=== PATIENT | male | born 1980 | race Caucasian/White ===

== ENCOUNTER 2022-12-03 22:43 | Emergency (ER) | payer MEDICARE, MEDICAID ==
[~2022-12-03] VITALS: Ht 182.9 cm; Wt 168.9 kg
[2022-12-03] MEDS ORDERED: BOOSTRIX VACCINE (TETANUS/DIPHTH/ACEL. PERTUSSIS) 0.5ML SYR IM ONE (23:35)
[2022-12-03] MEDS ORDERED: DOXYCYCLINE HYCLATE 100MG TABLET PO ONE (23:55)
[2022-12-03] MEDS ORDERED: DOXY-443 PO (23:55)
[2022-12-04 00:04] VITALS: BP 130/84; TEMP 98.8; O2SAT 98
== END 2022-12-04 00:06 | disposition home or self-care (01) ==
LOC: M ED 22:43
DX: L02.415 Cutaneous abscess of right lower limb (principal); L03.115 Cellulitis of right lower limb

== ENCOUNTER 2022-12-05 20:02 | Emergency (ER) | payer MEDICARE, MEDICAID ==
[~2022-12-05] VITALS: Ht 182.9 cm; Wt 166.2 kg
[~2022-12-05 20:02] MED LIST: DOXY-443 PO
[2022-12-05 20:42] VITALS: BP 135/88; TEMP 99.7; O2SAT 97
== END 2022-12-05 20:44 | disposition home or self-care (01) ==
LOC: M ED 20:02
DX: L03.115 Cellulitis of right lower limb (principal)

== ENCOUNTER → 2024-08-21 | Outpatient (REF) | payer MEDICARE, MEDICAID ==
[~2024-08-21] MED LIST changes: +DOXY-441 PO; -DOXY-443 PO
[2024-08-21 18:34] LABS: BASO # 0.0 10^3/uL (0.0-0.2); BASO % 0.5 % (0.0-1.0); EOS # 0.2 10^3/uL (0.0-0.5); EOS % 2.0 % (0.0-3.0); LYMPH # 2.1 10^3/uL (1.5-5.0); LYMPH % 27.0 % (24.0-44.0); MONO # 0.8 10^3/uL (0.0-0.8); MONO % 10.5 % (2.0-8.0); NEUTROPHILS # 4.6 10^3/uL (1.5-8.5); NEUTROPHILS % 59.7 % (36.0-66.0); PLATELET COUNT, AUTOMATED 243 10^3/uL (150-450)
[2024-08-21 18:39] LABS: ALT/SGPT 16 U/L (7.0-40); AST/SGOT 12 U/L (<34); CALCIUM LEVEL 9.0 MG/DL (8.5-10.1); CARBON DIOXIDE LEVEL 28 MMOL/L (20-31); CHLORIDE LEVEL 104 MMOL/L (98-107); CHOLESTEROL LEVEL 124 MG/DL (<200); CHOLESTEROL RISK RATIO 2.96 (<5); CREATININE FOR GFR 0.69 MG/DL (0.70-1.30); GLOMERULAR FILTRATION RATE > 90.0 (>60); LDL CHOLESTEROL 57.0 MG/DL (<100); NON-HDL-C 82.2 MG/DL; POTASSIUM SERUM 4.1 MMOL/L (3.5-5.1); SODIUM LEVEL 139 MMOL/L (136-145); TRIGLYCERIDES LEVEL 126 MG/DL (<150)
[2024-08-21 18:44] LABS: ESTIMATED AVERAGE GLUCOSE 126.0 MG/DL (60-110)
== END ==
LOC: M SFHCLERA 11:10
PROVIDERS: ATTEND Internal Medicine
DX: Z00.01 Encounter for general adult medical examination with abnormal findings (principal); E78.00 Pure hypercholesterolemia, unspecified